=== PATIENT | male | born 1970 | race Two or more races ===

== ENCOUNTER 2023-11-30 22:33 | Emergency (ER) | payer BC ==
[2023-12-01] MEDS ORDERED: Nystatin Powder 15 GM BOT TOP SCH (01:30)
[2023-12-01 02:09] LABS: #Basophils 0.04 10x3/uL (0.0-0.2); %Basophils 0.6 % (0.0-1.0); %Eosinophils 5.9 % (0.0-10.0); %Lymphocytes 30.2 % (21.0-51.0); %Monocytes 10.8 % (0.0-10.0); %Neutrophils 52.4 % (42.0-75.0); Hematocrit 48.8 % (42.0-52.0); Hemoglobin 15.8 g/dL (14.0-18.0); Mean Corpuscular HGB CONC 32.4 g/dL (32.0-36.0); Mean Corpuscular Hemoglobin 27.6 pg (27.0-31.0); Mean Corpuscular Volume 85.3 fL (78.0-98.0); Platelet Count 196 10x3/uL (130-400); RBC Distribution Width 15.9 % (11.5-14.5); Red Blood Cell (RBC) Count 5.72 mill/uL (4.70-6.10)
[2023-12-01 02:23] LABS: ALT (SGPT) 12 U/L (8-55); AST (SGOT) 15 U/L (5-34); Albumin 3.7 g/dL (3.5-5.0); Alkaline Phosphatase 59 U/L (40-110); Anion Gap 12 mmol/L (10-20); BUN (Urea Nitrogen) 25 mg/dL (8.4-25.7); Bilirubin, Total 0.4 mg/dL (0.2-1.2); Calc. Creatinine Clearance 0 mL/min (70-130); Calcium 9.2 mg/dL (7.8-10.44); Carbon Dioxide 25 mmol/L (22-29); Chloride 107 mmol/L (98-107); Estimated GFR 71; Globulin 3.2 g/dL (2.4-3.5); Glucose 113 mg/dL (70-105); Potassium 3.7 mmol/L (3.5-5.1); Protein, Total 6.9 g/dL (6.0-8.3); Sodium 140 mmol/L (136-145)
== END 2023-12-01 03:25 | disposition home or self-care (01) ==
LOC: ERS 22:33
DX: B49 Unspecified mycosis (principal)
CPT/HCPCS: 36415; 80053; 85025; 99282